=== PATIENT | female | born 1965 | race Caucasian/White ===

== ENCOUNTER 2025-07-17 17:09 | Emergency (ER) | payer BC ==
[~2025-07-17] VITALS: Ht 162.6 cm; Wt 99.8 kg
[2025-07-17] MEDS ORDERED: SODIUM CHLORIDE 0.9% 1000ML 1,000 ML IV STA (17:58)
[2025-07-17] MEDS ORDERED: SODIUM CHLORIDE 0.9% 100 ML ONE (18:09)
[2025-07-17] MEDS ORDERED: IOPAMIDOL 370 MG/ML 100 ML INFUS..BTL INJ ONE (18:09)
[2025-07-17 18:38] LABS: BASOPHILS % 0.8 % (0.0-1.0); EOSINOPHILS % 1.6 % (0.0-6.0); LYMPHOCYTES % 23.9 % (18.0-39.1); MONOCYTES % 7.4 % (4.4-11.3); NEUTROPHILS % 66.0 % (38.7-80.0); RED CELL DISTRIBUTION WIDTH 12.7 % (11.7-14.4)
[2025-07-17 18:52] LABS: INR 0.82
[2025-07-17 19:02] LABS: EST GLOMERULAR FILTRATION RATE 100.0 ML/MIN (>=60)
[2025-07-17 20:30] VITALS: PULSE 78; RESP 16; TEMP 98.6; O2SAT 100
[2025-07-18] MEDS ORDERED: IOPAMIDOL 370 MG/ML 100 ML INFUS..BTL INJ ONE (04:32)
== END 2025-07-17 20:50 | disposition home or self-care (01) ==
LOC: ER 17:50
DX: H49.02 Third [oculomotor] nerve palsy, left eye (principal); E11.9 Type 2 diabetes mellitus without complications; E78.5 Hyperlipidemia, unspecified
CPT/HCPCS: 36415; 70450; 70496; 70498; 71045; 80053; 82550; 83690; 83880; 84484; 85025; 85610; 99284; J7050; Q9967